=== PATIENT | male | born 1945 | race Caucasian/White ===

== ENCOUNTER 2016-11-10 07:37 | Day surgery (SDC) | payer OTHER ==
[~2016-11-10] VITALS: Ht 188 cm; Wt 105.2 kg
[2016-11-10 08:18] LABS: EOSINOPHIL (%) 0.1 % (0-5); HEMATOCRIT 40.2 % (38.0-50.0); IMMATURE GRANULOCYTE (%) 0.1 % (0.0-0.7); IMMATURE GRANULOCYTE COUNT 0.1 K/uL; MCH 31.8 PG (29.0-34.0); MCHC 35.3 G/DL (30.0-36.0); MCV 90.1 FL (86-99); MEAN PLAT.VOLUME 8.8 uM^3 (9.0-12.4); MONOCYTE COUNT 0.8 K/uL (0-0.8); NEUTROPHIL (%) 80.9 % (45-76); NEUTROPHIL COUNT 7.8 K/uL (1.8-6.4); PLATELET COUNT 238 K/uL (156-360); RBC DIS.WIDTH-CV 12.5 % (11.8-14.6); RBC DIS.WIDTH-SD 40.5 % (39-53); RED BLOOD COUNT 4.46 M/uL (4.00-5.50); WHITE BLOOD COUNT 9.7 K/uL (4.1-10.2)
[2016-11-10 08:33] LABS: CHLORIDE 104 mEq/L (99-109); POTASSIUM 3.8 mEq/L (3.7-5.4); SODIUM 138 mEq/L (136-147)
[2016-11-10 08:35] LABS: GLUCOSE 221 mg/dL (70-99)
[2016-11-10 08:36] LABS: ANION GAP 10 MEQ/L (2-14)
[2016-11-10 08:38] LABS: GFR ESTIMATE (CALCULATED) > 59 mL/min/
[2016-11-10 08:39] LABS: UREA NITROGEN (BUN) 15 mg/dL (9-23)
[2016-11-10 08:44] LABS: ADD MIUA? YES; BILIRUBIN NEGATIVE; BLOOD SMALL; COLOR YELLOW ((YELLOW)); GLUCOSE (STRIP) >=500; KETONES 80; LEUKOCYTES NEGATIVE; NITRITE NEGATIVE; PROTEIN (STRIP) 30; SPECIFIC GRAVITY 1.022 (1.000-1.030); UROBILINOGEN 0.2 MG/DL (0.2-1.0)
[2016-11-10 09:03] LABS: BACTERIA NONE SEEN /HPF; EPITHELIAL CELLS NONE SEEN /HPF; MUCUS TRACE /LPF; RED BLOOD CELLS 0-5 /HPF (0-5); WHITE BLOOD CELLS 0-5 /HPF (0-5)
[2016-11-10 12:09] VITALS: BP 160/74
[2016-11-10] MEDS ORDERED: PERCOCET 5/31 TABLET PO (12:12)
[2016-11-10] MEDS ORDERED: ZOFRAN ODT4 MG PO (12:13)
[2016-11-10] MEDS ORDERED: PLAVIX75 MG PO (12:27)
[2016-11-10] MEDS ORDERED: LO-DOSE ASPIRIN81 M2 PO (12:28)
[2016-11-10] MEDS ORDERED: LISINOPRIL10 MG PO (12:29)
[2016-11-10] MEDS ORDERED: METFORMIN HCL1000 MG PO (12:29)
[2016-11-10] MEDS ORDERED: NITROSTAT0.4 MG SL (12:30)
[2016-11-10] MEDS ORDERED: FLOMAX0.4 MG PO (12:30)
[2016-11-10] MEDS ORDERED: ZOCOR40 MG PO (12:30)
[2016-11-10] MEDS ORDERED: GLUCOTROL10 MG PO (12:31)
[2016-11-10] MEDS ORDERED: METOPROLOL TART25 MG PO (12:32)
[2016-11-10 18:17] LABS: POINT-OF-CARE METER ID UU13113675
[2016-11-10 20:50] VITALS: BP 132/78
[2016-11-11 00:31] VITALS: BP 161/68; BP 191/79
[2016-11-11 00:41] VITALS: BP 145/78
[2016-11-11 04:35] VITALS: BP 165/71
[2016-11-11 07:31] LABS: ANION GAP 9 MEQ/L (2-14); CHLORIDE 103 MEQ/L (99-109); GFR ESTIMATE (CALCULATED) > 59 mL/min/; GLUCOSE 204 mg/dL (70-99); POTASSIUM 3.7 MEQ/L (3.7-5.4); SAMPLE HEMOLYSIS CHECK 0; SAMPLE ICTERIC CHECK 0; SAMPLE LIPEMIA CHECK 0; SODIUM 139 MEQ/L (136-147); UREA NITROGEN (BUN) 10 mg/dL (9-23)
[2016-11-11 07:36] LABS: HEMATOCRIT 35.7 % (38.0-50.0); MCH 31.9 PG (29.0-34.0); MCHC 33.9 G/DL (30.0-36.0); MEAN PLAT.VOLUME 9.6 uM^3 (9.0-12.4); PLATELET COUNT 213 K/uL (156-360); RBC DIS.WIDTH-SD 44.2 % (39-53); RED BLOOD COUNT 3.79 M/uL (4.00-5.50)
[2016-11-11 07:42] LABS: MCV 94.2 FL (86-99); WHITE BLOOD COUNT 6.3 K/uL (4.1-10.2)
[2016-11-11 08:00] VITALS: BP 169/80
[2016-11-11 12:00] VITALS: BP 169/74
== END 2016-11-11 13:03 | disposition home or self-care (01) ==
LOC: EDBD 07:37 → EME 07:37 → SDC 11:37 → EME 11:37 → 2EAST 17:47 → 2SOUTH 17:47 → 2EAST 19:59
PROVIDERS: Emergency Medicine; Urology
PROC: 0TF68ZZ Fragmentation in Right Ureter, Via Natural or Artificial Opening Endoscopic (ICD-10-PCS; principal; 2016-11-10)
PROC: 0TF78ZZ Fragmentation in Left Ureter, Via Natural or Artificial Opening Endoscopic (ICD-10-PCS; principal; 2016-11-10)
PROC: 0TF48ZZ Fragmentation in Left Kidney Pelvis, Via Natural or Artificial Opening Endoscopic (ICD-10-PCS; principal; 2016-11-10)
PROC: 0TF38ZZ Fragmentation in Right Kidney Pelvis, Via Natural or Artificial Opening Endoscopic (ICD-10-PCS; principal; 2016-11-10)
DX: N20.1 Calculus of ureter (principal); N20.0 Calculus of kidney; I10 Essential (primary) hypertension; E11.9 Type 2 diabetes mellitus without complications; I25.2 Old myocardial infarction
CPT/HCPCS: 74176; 80048; 81003; 82948; 85025; 85027; 93005; 94799; 99281; 99285; C1769; C1876; G0378; J0131; J0330; J0696; J1170; J2270; J2405; J2765; J3010; J7030; J7050; J7120